=== PATIENT | female | born 1940 | race Two or more races ===

== ENCOUNTER 2023-03-24 09:43 | Outpatient (CLI) | payer OTHER | END 2023-03-24 09:48 | disposition home or self-care (01) | LOC: SONOGRAMA 09:43 | PROVIDERS: ATTEND Surgery | DX: N60.12 Diffuse cystic mastopathy of left breast (principal); N60.11 Diffuse cystic mastopathy of right breast ==

== ENCOUNTER 2023-04-18 14:09 | Outpatient (CLI) | payer OTHER | END 2023-04-18 14:13 | disposition home or self-care (01) | LOC: RAD 14:09 | DX: I10 Essential (primary) hypertension (principal); I50.22 Chronic systolic (congestive) heart failure ==

== ENCOUNTER → 2023-04-28 | Day surgery (SDC) | payer OTHER ==
[~2023-04-28] MED LIST: ALDACTONE25 MG; CEFAZOLIN SODIUM 1,000 MG VIAL ONE; CHLORHEXIDINE GLUCONATE 120 ML BOTTLE TOP ONE; ELIQUIS2.5 MG PO; ENTRESTO 24 MG1 EACH; FEOSOL325 MG; GLUMETZA500 MG PO; LANOXIN125 MCG; NORVASC5 MG; TOPROL XL50 M1
== END | disposition home or self-care (01) ==
LOC: ADM 04-26 15:15 → CIR.AMB 05:11
PROVIDERS: ATTEND Surgery
DX: C50.812 Malignant neoplasm of overlapping sites of left female breast (principal); R59.0 Localized enlarged lymph nodes